=== PATIENT | female | born 1960 | race Caucasian/White ===

== ENCOUNTER → 2019-03-03 | Outpatient (CLI) | payer OTHER ==
[2019-03-03 14:01] LABS: Alanine Aminotransfer (ALT/SGP 46 U/L (12-78); Albumin, Blood 4.2 g/dL (3.4-5.0); Albumin/Globulin Ratio 1.1 (0.8-1.8); Alk Phos 84 U/L (50-136); Anion Gap 3 mmol/L (6-16); Aspartate Aminotrans (AST/SGOT 21 U/L (12-37); Bilirubin, Total 0.7 mg/dL (0.1-1.0); Blood Urea Nitrogen 12 mg/dL (8-24); Bun/Creatinine Ratio 15.7 (12.0-20.0); CHOL/HDL RATIO 4.5; CO2, Blood 30 mmol/L (21-32); Calcium, Blood 9.1 mg/dL (8.5-10.1); Chloride, Blood 106 mmol/L (98-108); Cholesterol 241 mg/dL (50-200); Creatinine, Blood 0.77 mg/dL (0.40-1.00); Globulin, Blood 3.7 g/dL (2.2-4.0); Glomerular Filtration Rate >60 (60-); Glucose, Blood 93 mg/dL (70-99); HDL Cholesterol 54 mg/dL (>39); LDL/HDL RATIO 2.8; Low Density Lipoprotein Chol 151 mg/dL (0-110); Potassium, Blood 4.1 mmol/L (3.5-5.5); Sodium, Blood 139 mmol/L (136-145); Total Protein, Blood 7.9 g/dL (6.4-8.2); Triglycerides 179 mg/dL (30-160); Very Low Density Lipoprot Chol 35 mg/dL (6-32)
== END ==
LOC: LAB SHORT 13:29 → LAB 13:29
PROVIDERS: Hospitalist
DX: Z00.00 Encounter for general adult medical examination without abnormal findings (principal); Z12.4 Encounter for screening for malignant neoplasm of cervix; E78.5 Hyperlipidemia, unspecified
CPT/HCPCS: 80053; 80061; G0145

== ENCOUNTER → 2019-03-12 | Outpatient (CLI) | payer OTHER ==
[2019-03-13 00:55] LABS: Free Thyroxine 0.97 ng/dL (0.70-1.60)
[2019-03-13 00:56] LABS: Thyroid Stimulating Hormone 2.71 uIU/mL (0.360-4.800)
== END | disposition home or self-care (01) ==
LOC: LAB SHORT 15:41 → LAB 15:41
PROVIDERS: Hospitalist
DX: Z00.00 Encounter for general adult medical examination without abnormal findings (principal)
CPT/HCPCS: 82306; 84439; 84443

== ENCOUNTER 2020-02-17 08:18 | Day surgery (SDC) | payer OTHER ==
[~2020-02-17] VITALS: Ht 160 cm; Wt 73.2 kg
[~2020-02-17 08:18] MED LIST: ALLERCLEAR10 M1 PO; ASCO500 PO; ERGO50000 PO; MULTIPLE VITAM1 EACH PO; PRESERVISION A1 EACH PO
== END 2020-02-17 10:24 | disposition home or self-care (01) ==
LOC: ORSCSDS 08:18
PROVIDERS: Ophthalmology
PROC: 08RK3JZ Replacement of Left Lens with Synthetic Substitute, Percutaneous Approach (ICD-10-PCS; principal; 2020-02-17 09:30)
DX: H25.12 Age-related nuclear cataract, left eye (principal); Z87.891 Personal history of nicotine dependence
CPT/HCPCS: J2001; J2250; J3010; J3301; J7040; V2632

== ENCOUNTER 2025-05-26 12:13 | Day surgery (SDC) | payer OTHER ==
[~2025-05-26] VITALS: Ht 160 cm; Wt 78.4 kg
[~2025-05-26 12:13] MED LIST changes: +Balanced Salt Epinephrine Irrigation Solution 500 mL IR SCH; +Moxifloxacin HCL 0.5 MG/0.1 ML 0.4MLSYR RIGHTEYE SCH; +Ondansetron 4 MG SoluTab MM PRN; +PHENYLEPHRINE\\TROPICAMIDE\\TETRACAINE OPHTHALMIC DILATING SOLN RIGHTEYE PRN; +Povidone-Iodine 450 DROP/30 ML Solution ONE; +Povidone-Iodine 450 DROP/30 ML Solution RIGHTEYE SCH; +Tetracaine HCl/Pf 0.5% Opth Soln 4 ml ONE; +Triamcinolone Inj Susp 40 MG / ML 1ML Vial INJ SCH; +Triamcinolone Inj Susp 40 MG / ML 1ML Vial ONE
--- NOTE | 2025-05-26 12:44 | NUR ---
05/26/25 1244 Ida Webb PT RATED ANXIETY 11/09 UPON ARRIVAL. VALIUM GIVEN PER DR'S ORDERS. PULSE OX ON; SATS ARE 100% ON ROOM AIR. CALL LIGHT IN REACH. WARM BLANKETS PROVIDED.
--- NOTE | 2025-05-26 13:16 | NUR ---
05/26/25 1316 Alberta Saleh HR:65 RR:14 BP:135/92 SPO2:99% ON 10L BLOW BY O2
[2025-05-26 13:55] VITALS: BP 142/85
--- NOTE | 2025-05-26 13:56 | NUR ---
05/26/25 0188 MARIA ISABEL GUERRERO DENIES PAIN AT THIS TIME. EYE FEELS JUST A LITTLE DRY. SHE ADMITS THAT SHE WILL USE SYSTANE WHEN SHE GETS HOME.
== END 2025-05-26 13:55 | disposition home or self-care (01) ==
LOC: ORSCSDS 12:13
PROVIDERS: Ophthalmology
PROC: 08RJ3JZ Replacement of Right Lens with Synthetic Substitute, Percutaneous Approach (ICD-10-PCS; principal; 2025-05-26 13:30)
DX: H25.811 Combined forms of age-related cataract, right eye (principal); Z96.1 Presence of intraocular lens; Z79.82 Long term (current) use of aspirin
CPT/HCPCS: A9270; J3301; V2632